=== PATIENT | male | born 1965 | race Caucasian/White ===

== ENCOUNTER → 2024-09-23 15:27 | Outpatient (REF) | payer OTHER, SELFPAY | LOC: CLAB 15:27 | PROVIDERS: ATTENDING PHYSICIAN Nurse Practitioner Family; PRIMARYCARE PHYSICIAN Family Medicine | DX: L08.9 Local infection of the skin and subcutaneous tissue, unspecified (principal) | CPT/HCPCS: 87070; 87205 ==

== ENCOUNTER → 2024-09-23 16:06 | Outpatient (REF) | payer OTHER, SELFPAY ==
[2024-09-23 16:52] LABS: % Basophils 0.5 % (0-2); % Eosinophils 1.8 % (0-6); % Immature Granulocytes 0.3 % (0-0.5); % Lymphocytes 26.8 % (20.5-51.1); % Monocytes 9.2 % (1.7-9.3); % Neutrophils 61.4 % (42.2-75.2); Absolute Eosinophils 0.1 10^3/uL (0-0.7); Absolute Lymphocytes 1.6 10^3/uL (1.2-3.4); Absolute Monocytes 0.6 10^3/uL (0.1-0.6); Absolute Neutrophils 3.7 10^3/uL (1.4-6.5); Hematocrit 47.8 % (39.0-52.0); Hemoglobin 15.8 g/dL (13.0-18.0); Mean Corp Hgb Conc. 33.1 g/dL (33.0-37.0); Mean Corpuscular Volume 93.9 fL (80.0-94.0); Mean Platelet Volume 8.4 fL (7.4-10.4); Nucleated Red Blood Cells % 0 % (-); Platelet Count 193 10^3/uL (130-400); Red Blood Cell Count 5.09 10^6/uL (4.70-6.10); Red Cell Dist. Width 13.2 % (11.5-14.5)
[2024-09-23 17:17] LABS: ALT (SGPT) 36 U/L (0-50); AST (SGOT) 27 U/L (17-59); Albumin 4.2 g/dl (3.5-5.0); Alkaline Phosphatase 66 U/L (38-126); Blood Urea Nitrogen 18 mg/dl (9-20); Calcium 9.2 mg/dl (8.4-10.2); Carbon Dioxide 27 mmol/L (22-30); Chloride 100 mmol/L (98-107); Glucose 106 mg/dl (70-99); Sodium 141 mmol/L (135-145); Total Bilirubin 0.5 mg/dl (0.2-1.3); Total Protein 6.8 g/dl (6.3-8.2); eGFR > 60.00
== END ==
LOC: RAD 16:06
PROVIDERS: ATTENDING PHYSICIAN Nurse Practitioner Family; FAMILY PHYSICIAN Family Medicine
DX: L08.9 Local infection of the skin and subcutaneous tissue, unspecified (principal)
CPT/HCPCS: 36415; 73630; 80053; 85025

== ENCOUNTER 2024-11-22 14:25 | Emergency (ER) | payer OTHER, SELFPAY ==
[2024-11-22 14:27] VITALS: BP 139/85
--- NOTE | 2024-11-22 15:13 | ED.SKININJ ---
HPI-Injury
General
Chief Complaint: Skin Problem
Source: patient
Exam Limitations: none
Time Seen by Provider: 11/22/24 15:07
Nursing documentation reviewed up to this point in time: agreed with
History of Present Illness-Injury
Is this injury a work related problem?: No
Is pt an associate of [facility]/[place]?: No
Initial Injury comments:
Patient to ED with complaint of pain redness swelling to proximal left 3rd finger. Symptoms started approx 4 days ago. Initially had 'a pimple' at site. States he squeezed area and a large amt of pus drained. Since then he has had increasing
redness and swelling to area. He was seen at and referred to ED. No fever/chills. ROM intact to finger. No current drainage.
Past History
Past History
ED Past Medical History: None
Review of Systems
Review of Systems
Allergies reviewed?: Yes
All Other Systems: ROS reviewed and negative except as documented in HPI and ROS
Constitutional: Reports no symptoms
Musculoskeletal: Reports no symptoms
Skin: Reports other (cellulitis left proximal 3rd finger)
Neurological: Reports no symptoms
Psychiatric: Reports no symptoms
Phy Exam
General Physical Exam
General Presentation: well appearing and no apparent distress
General age: appears stated age
General Skin: warm and dry
General Habitus: normal
General Mental: alert
Musculoskeletal Exam
Musculoskeletal Exam: full ROM and neuro vasc intact
Skin Exam
Skin Exam: warm/dry, no rash and other (Erythema and swelling to left proximal 3rd finger consistent with cellulitis. No area of fluctuance. No drainage.)
Psychiatric Exam
Psychiatric Exam: normal mood/affect
Course
Orders/Labs/Results
Orders:
Orders
11/22/24 15:13
Cephalexin Monohydrate [Keflex] 500 mg PO NOW STA
Vital Signs
Initial and Last Documented VS:
Initial Vital Signs
Temp Pulse Resp BP Pulse Ox
98.7 F 90 16 139/85 98
11/22/24 14:27 11/22/24 14:27 11/22/24 14:27 11/22/24 14:27 11/22/24 14:27
Last Documented Vital Signs
Temp Pulse Resp BP Pulse Ox
98.7 F 90 16 139/85 98
11/22/24 14:27 11/22/24 14:27 11/22/24 14:27 11/22/24 14:27 11/22/24 14:27
*Critical Care Note
Total Time (30-74mins, 75-104mins- exclusive of procedures): Not Applicable
Update Note
Update Note:
Patient to ED with cellulitis to left proximal 3rd finger. He squeezed site earlier this week and reported a large amount of pus at that time. No drainage since. No area of abscess foramation noted. He does not recall an injury to site. Xray
discussed, he is aware that only radiopaque objects will be visible. Will hold off for now. ROM intact to finger. No concern over tensynovitis. Doubtful for osteomyelitis, he remains afebrile, good ROM, sensation, no drainage. will place on
Keflex qid, continue warm soaks. Given number for hand follow up if symptoms persist. Will return to ED this weekend for any changes in/worsening of his symptoms.
ED Attending Note
-
Portions of this chart may have been created with voice recognition software.� Occasional wrong word or��sound alike� substitutions may have occurred due to the inherent limitations of voice recognition software.
Discharge Plan
Departure
Patient Disposition: Home (Routine Discharge)
Date of Disposition: 11/22/24
Time of Disposition: 15:13
Patient with high blood pressure during this ER visit?: No
Condition: Good
Covid-19: Not Applicable
Discharge Problem:
Cellulitis of finger
Instructions: Wound Care (DC), Cellulitis (Skin Infection), Adult (DC)
Prescriptions:
New
cephalexin 500 mg capsule
500 mg PO QID 10 Days Qty: 40 0RF
Referrals:
Brent Randall MD [Active] - (Follow up if your symptoms do not improve over the next 2-3 days.)
Activity Restrictions/Additional Instructions:
Return to the emergency department immediately for fever/chills, increasing redness/swelling/drainage from your finger, loss of movement due to pain, or for any further concerns. Warm soaks to finger 15-20 minutes at a time, 4-5 times daily.
Interventions
Interventions:
*Risk Screen - Suicide Last Done: 11/22/24 14:27
*General Assessment Last Done: 11/22/24 15:10
*Neglect/Abuse Screening Last Done: 11/22/24 14:27
ED-Skin Assessment Last Done: 11/22/24 15:10
Discharge Date and Time
Print Language: GEORGIAN
[2024-11-22] MEDS: KEFLEX 500 MG PO (15:26)
== END 2024-11-22 15:35 | disposition home or self-care (01) ==
LOC: EMR 14:25
PROVIDERS: EMERGENCY PHYSICIAN Student in an Organized Health Care Education/Training Program; FAMILY PHYSICIAN Family Medicine
DX: L03.012 Cellulitis of left finger (principal)
CPT/HCPCS: 99283

== ENCOUNTER 2024-11-24 13:46 | Emergency (ER) | payer OTHER, SELFPAY ==
[2024-11-24 13:57] VITALS: BP 136/87
[2024-11-24 14:04] VITALS: BMI 33.1
--- NOTE | 2024-11-24 14:57 | ED.GENMED ---
History of Present Illness
General
Chief Complaint: Skin Problem
Time Seen by Provider: 11/24/24 14:21
History of Present Illness
History of Present Illness:
Patient is a 59-year-old man presenting to the emergency department finger infection. Patient states that about 5 days ago he developed a pimple on his left middle finger at the dorsal aspect. He states that he occasionally gets a splinter that
causes an infection. He tried to remove it and then he popped some purulent fluid. He put some Neosporin on it. 2 days ago the redness continued to worsen so he came in for further evaluation. He was prescribed Keflex and discharged. He is
returning today as the redness has spread. He does note some worsening swelling. 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 No fevers or chills. No numbness tingling. No weakness.
Past History
Past History
ED Past Medical History: None
Phy Exam
Physical Exam
Physical Exam:
GENERAL: in no acute distress
HEENT: normocephalic, extraocular movements intact
NECK: normal inspection
RESPIRATORY: no respiratory distress
CARDIOVASCULAR: regular rate and rhythm
EXTREMITIES: Left middle finger dorsal aspect with area of erythema edema warmth, no obvious fluctuance, full ROM, no difficulty with movement
NEUROLOGIC: awake and alert, moves all extremities
SKIN: warm
Course
Orders/Labs/Results
Orders:
Orders
11/24/24 14:56
CR Finger(s)/thumb Min 2 Vw Lt Urgent
Comment:
Reason For Exam: left middle finger infection
11/24/24 15:49
Doxycycline [Vibramycin] 100 mg PO NOW STA
11/24/24 15:50
Splints/Slings/Crut- Treatment ONCE
11/24/24 20:00
Ciprofloxacin HCl [Cipro] 500 mg PO BID
Vital Signs
Initial and Last Documented VS:
Initial Vital Signs
Temp Pulse Resp BP Pulse Ox
98.2 F 91 20 136/87 98
11/24/24 13:57 11/24/24 13:57 11/24/24 13:57 11/24/24 13:57 11/24/24 13:57
Last Documented Vital Signs
Temp Pulse Resp BP Pulse Ox
98.2 F 91 20 136/87 98
11/24/24 13:57 11/24/24 13:57 11/24/24 13:57 11/24/24 13:57 11/24/24 13:57
MDM/Problems Addressed
Differential Diagnosis Includes:
59-year-old man presenting to the emergency department with left middle finger infection. Vitals unremarkable and on exam on his proximal phalanx dorsally there is a large area of erythema and warmth. It has started to spread down his knuckle
slightly. I did luanne the area. I did complete a bedside ultrasound which did not show any obvious fluid collection but he does have significant cobblestoning. No foreign body visualized. Will obtain x-ray to rule out osteomyelitis given that the
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 Exam not consistent with flexor tenosynovitis.
*Critical Care Note
Total Time (30-74mins, 75-104mins- exclusive of procedures): Not Applicable
Update Note
Update Note:
X-ray per my interpretation with no cortical involvement to suggest osteomyelitis. No foreign body. We did discuss switching antibiotics or admitting for IV antibiotics. Given his history and the purulent drainage patient would benefit from MRSA
coverage. We did discuss that he could try it outpatient as the Keflex was not enough or we could admit him for IV antibiotics. Given the patient is afebrile x-ray is unremarkable and the swelling/redness has not worsened since he has been here he
did opt for outpatient management. Strict return precautions given. Patient advised to follow-up with hand surgery and given splint for comfort. Patient also advised on warm soaks. All questions answered. Patient stable for discharge
ED Attending Note
-
Portions of this chart may have been created with voice recognition software.� Occasional wrong word or��sound alike� substitutions may have occurred due to the inherent limitations of voice recognition software.
Discharge Plan
Departure
Patient Disposition: Home (Routine Discharge)
Date of Disposition: 11/24/24
Time of Disposition: 15:50
Patient with high blood pressure during this ER visit?: No
Discharge Problem:
Cellulitis
Instructions: Cellulitis (Skin Infection), Adult (DC)
Prescriptions:
New
ciprofloxacin HCl [Cipro] 500 mg tablet
500 mg PO BID 7 Days Qty: 14 0RF
doxycycline hyclate 100 mg capsule
100 mg PO BID 7 Days Qty: 14 0RF
No Action
cephalexin 500 mg capsule
500 mg PO QID 10 Days Qty: 40 0RF
Referrals:
Jc Arguello MD [Active] -
Makenzie Byrd DO [Family Provider] -
Activity Restrictions/Additional Instructions:
You were seen in the Emergency Department today for a skin infection. please continue to take the antibiotics as prescribed. Please come back if the redness spreads outside the lines you develop new fevers chills or worsening swelling or pain.
Please complete warm soaks to help with the swelling. You may remove the splint every few hours to move your fingers. Please follow-up with a hand surgeon.
We would like for you to follow up with your primary care physician for further evaluation. If you experience fever, worsening of your symptoms, or develop any other new or concerning symptoms, please return to the Emergency Department immediately.
Please see the attached sheet for additional information.
Interventions
Interventions:
*Risk Screen - Suicide Last Done: 11/24/24 13:57
*General Assessment Last Done: 11/24/24 14:04
*ED COVID-19 Vaccine History Last Done: 11/24/24 14:04
ED-Skin Assessment Last Done: 11/24/24 14:04
Discharge Date and Time
Print Language: KINYARWANDA
[2024-11-24] MEDS: VIBRAMYCIN 100 MG PO (16:05)
[2024-11-24] MEDS: CIPRO 500 MG PO (16:05)
[2024-11-24 16:10] VITALS: BP 135/85
== END 2024-11-24 16:11 | disposition home or self-care (01) ==
LOC: EMR 13:46
PROVIDERS: EMERGENCY PHYSICIAN Student in an Organized Health Care Education/Training Program; FAMILY PHYSICIAN Family Medicine
DX: L03.012 Cellulitis of left finger (principal); Z86.14 Personal history of Methicillin resistant Staphylococcus aureus infection
CPT/HCPCS: 99283; 73140

== ENCOUNTER → 2025-02-13 11:38 | Outpatient (REF) | payer OTHER, SELFPAY | LOC: CLAB 11:38 | PROVIDERS: ATTENDING PHYSICIAN Nurse Practitioner Family | DX: L08.9 Local infection of the skin and subcutaneous tissue, unspecified (principal); B99.9 Unspecified infectious disease | CPT/HCPCS: 87070; 87205 ==

== ENCOUNTER → 2025-02-14 11:43 | Outpatient (REF) | payer OTHER, SELFPAY ==
[2025-02-14 13:17] LABS: % Basophils 0.5 % (0-2); % Eosinophils 2.3 % (0-6); % Immature Granulocytes 0.5 % (0-0.5); % Lymphocytes 31.3 % (20.5-51.1); % Monocytes 9.7 % (1.7-9.3); % Neutrophils 55.7 % (42.2-75.2); Absolute Eosinophils 0.1 10^3/uL (0-0.7); Absolute Lymphocytes 1.4 10^3/uL (1.2-3.4); Absolute Monocytes 0.4 10^3/uL (0.1-0.6); Absolute Neutrophils 2.4 10^3/uL (1.4-6.5); Hematocrit 50.8 % (39.0-52.0); Mean Corp Hgb Conc. 33.5 g/dL (33.0-37.0); Mean Corpuscular Hgb 31.1 pg (27.0-31.0); Mean Corpuscular Volume 92.9 fL (80.0-94.0); Mean Platelet Volume 8.9 fL (7.4-10.4); Nucleated Red Blood Cells % 0 % (-); Platelet Count 185 10^3/uL (130-400); Red Blood Cell Count 5.47 10^6/uL (4.70-6.10); Red Cell Dist. Width 13.4 % (11.5-14.5); White Blood Cell Count 4.4 10^3/uL (4.8-10.8)
[2025-02-14 13:47] LABS: ALT (SGPT) 49 U/L (0-50); AST (SGOT) 29 U/L (17-59); Albumin 4.7 g/dl (3.5-5.0); Alkaline Phosphatase 84 U/L (38-126); Blood Urea Nitrogen 19 mg/dl (9-20); Calcium 9.3 mg/dl (8.4-10.2); Carbon Dioxide 29 mmol/L (22-30); Chloride 104 mmol/L (98-107); Glucose 100 mg/dl (70-99); Potassium 4.8 mmol/L (3.5-5.1); Sodium 141 mmol/L (135-145); Total Bilirubin 0.6 mg/dl (0.2-1.3); Total Protein 7.1 g/dl (6.3-8.2); eGFR > 60.00
[2025-02-14 14:19] LABS: Glycohemoglobin (HgbA1c) 5.5 % (4.0-5.6)
== END ==
LOC: RAD 11:43
PROVIDERS: ATTENDING PHYSICIAN Nurse Practitioner Family
DX: L08.9 Local infection of the skin and subcutaneous tissue, unspecified (principal); B99.9 Unspecified infectious disease
CPT/HCPCS: 36415; 73630; 80053; 83036; 85025

== ENCOUNTER → 2025-02-25 11:47 | Outpatient (REF) | payer OTHER, SELFPAY | LOC: CLAB 11:47 | PROVIDERS: ATTENDING PHYSICIAN Family Medicine | DX: L08.9 Local infection of the skin and subcutaneous tissue, unspecified (principal) | CPT/HCPCS: 87070; 87205 ==